=== PATIENT | female | born 1990 | race Caucasian/White ===

== ENCOUNTER 2017-07-28 16:50 | Inpatient (IN) ==
[2017-07-28] MEDS ORDERED: Famotidine 20 MG/2 ML VIAL IVP PRN (17:13)
[2017-07-28] MEDS ORDERED: Naloxone 0.4 MG/ML INJ IVP PRN (17:13)
[2017-07-28] MEDS ORDERED: Metoclopramide 10 MG/2 ML VIAL IVP PRN (17:13)
[2017-07-28] MEDS ORDERED: Ondansetron 4 MG/2 ML VIAL IVP PRN (17:13)
[2017-07-28] MEDS ORDERED: *HR* Nalbuphine 20 MG/ML AMPUL IVP PRN (17:13)
[2017-07-28 17:40] LABS: Basophils # 0.1 K/mcL (0.0-0.2); Basophils % 0.5 %; Eosinophils # 0.6 K/mcL (0.0-0.6); Hematocrit 38.8 % (35.3-44.9); Hemoglobin 13.1 g/dL (11.5-15.4); Immature Granulocytes % 0.4 % (0-4); Lymphocytes # 1.8 K/mcL (0.6-4.6); Lymphocytes % 11.6 %; Mean Corpuscular HGB Conc 33.8 g/dL (31.6-35.5); Mean Corpuscular Hemoglobin 29.9 pg (28.0-33.3); Mean Corpuscular Volume 88.6 fL (83.0-100.0); Mean Platelet Volume 12.2 fL (9.4-12.4); Monocytes # 1.5 K/mcL (0.0-1.3); Monocytes % 9.2 %; Neutrophils # 11.8 K/mcL (1.6-8.9); Platelet Count 193 K/mcL (140-400); Red Blood Count 4.38 M/mcL (3.82-4.97); Red Cell Distribution Width 12.8 % (11.5-14.5); Segmented Neutrophils % 74.3 %
[2017-07-28] MEDS: miSOPROStol 25 MCG TABLET VG PRN ×2 (17:46→23:41)
--- NOTE | 2017-07-28 17:57 | OB Labor Progress Note ---
Date of Encounter: 07/28/17 Time of Encounter: 17:55 Labor Progress Note - Subjective Subjective: Pt resting comfortably in bed. Denies feeling pain with contractions. - Cervix Cervix: 1/thick/-3 - Heart Tones Heart Tones: 150 bpm, moderate variability, +15x15 accels, no decels, Category I tracing. - Interventions Interventions: Arellano balloon placed and filled with 30 mL sterile water. Patient tolerated procedure well. 25 mcg Cytotec placed in posterior fornix after arellano placed. - Plan Plan: Continue labor management, AROM when appropriate. Repeat Cytotec 25 mcg in 4 hours if needed.
--- NOTE | 2017-07-28 18:11 | OB/GYN History & Physical ---
Date of Encounter: 07/28/17 Time of Encounter: 18:04 Assessment and Plan (1) 39 weeks gestation of Current visit: Yes Status: Acute Admit for IOL at 39w0d. BHARAT 7cm 07/25/17 from 18 cm on 07/18/17. Short balloon placed. Cytotec 25mcg placed vaginally. Epidural when requested. Anticipate . History of Present Illness Chief complaint: 39 week induction of labor HPI: Ms. Flower is a 27 year old female at 39w0d admitted for IOL. She is currently not feeling the contractions showing on monitor. Reports + movement, denies leakage of fluid and bleeding. BHARAT on 06/29/17 was 24.7 cm. Last BHARAT on 07/25/17 was 7 cm. Blood type A+ GBS negative Rubella Immune Varicella Immune HbSAG negative T. Pallidum negative HIV negative GC/Chlam negative Past Med Surg Social Fam HX - Past Medical History Source: patient Medical history: no medical history Psychiatric history: no psych history - Past Surgical History Surgical History: cholecystectomy - Social History Smoking Status: Never smoker Smokeless Tobacco Status: No Alcohol use: none Drug use: none Current living situation: Home - Independent Activity Level: Independent ambulation Recent Out of Country Travel Within the Last 8 Weeks: No Exposure or Possible Exposure to Illness During Travel: No - Family History Father Adopted: No Living Status: Still Living Hx Family Cardiac Disorders: No Hx Family Respiratory Disorders: No Hx Family Cancer: No Hx Family GI Disorders: No Hx Family Genitourinary Disorders: No Hx Family Endocrine Disorder: No Hx Family Musculoskeletal Disorders: No Hx Family Neuromuscular Disorders: No Hx Family Neurologic Disorders: No Hx Family HEENT Disorders: No Hx Family Autoimmune Disorders: No Hx Family Reproductive Disorders: No Hx Family Psychosocial Disorders: No Hx Family Medical Disorders: No Obstetrical History - Pregnancies : 1 Para: 0 Term: 0 : 0 Ab's: 0 Livin Medications and Allergies Claritin 07/28/17 [History] Formula Tablet 07/28/17 [History] Zantac 07/28/17 [History] 3 Allergy/AdvReac Type Severity Reaction Status Date / Time No Known Allergies Allergy Verified 07/28/17 17:21 Review of System OB All systems PM: reviewed and no additional remarkable complaints except as stated Exam - Constitutional Constitutional: well developed, well nourished, no acute distress, average body habitus - Neck Neck exam: full ROM, normal inspection - Lungs Respiratory exam: CTAB - Cardiovascular Cardiovascular exam: RRR, +S1, +S2 - Breasts Breast: bilateral: normal - Abdomen Abdomen: Present: bowel sounds normal, gravid, non tender - Extremities Extremities exam: full ROM, normal capillary refill, normal inspection - Cervix Dilation: 1 Effacement: 0 (Thick) Station: -3 - Uterus Uterus exam: Present: normal size, normal contour - Anus/Rectum Anus/Rectum: Present: normal perianal skin - Comments Comments: FHR 140 bpm, moderate variability, +15x15 accels, no decels. Category I tracing. Irregular contractions. Results Result Diagrams: 07/28/17 17:30 Abnormal lab results WBC 15.8 K/mcL (4.3-11.1) H 07/28/17 17:30 Neutrophils # 11.8 K/mcL (1.6-8.9) H 07/28/17 17:30 Monocytes # 1.5 K/mcL (0.0-1.3) H 07/28/17 17:30 All other labs normal. - VTE Reasons for not Prescribing Prophylaxis: Treatment not Indicated - Low risk for VTE
--- NOTE | 2017-07-28 22:35 | OB Labor Progress Note ---
Date of Encounter: 07/28/17 Time of Encounter: 22:32 Labor Progress Note - Subjective Subjective: Pt resting between contractions. Feels contractions approximately every 4 minutes, rating them a 6 out of 10. Plans an epidural for pain management when appropriate. - Cervix Cervix: 3/50/-3 - Heart Tones Heart Tones: FHR 145 bpm, moderate variability, + 15x15 accels, no decels. Category I tracing. - [place]: 1-4 minutes - Interventions Interventions: SVE - Plan Plan: Will consider second dose of Cytotec after better evaluation of contraction pattern is available. Continue labor management.
[2017-07-29] MEDS: Ringers Solution, Lactated 1,000 ML IVC SCH ×2 (00:27→04:16)
[2017-07-29] MEDS ORDERED: 0.9 % Sodium Chloride 500 ML ONE (03:06)
[2017-07-29] MEDS ORDERED: Epidural Premix (fent/bupiv) 110 ML EP ONE (03:09)
--- NOTE | 2017-07-29 04:09 | Anesthesia Evaluation PreOp ---
Date of Encounter: 07/29/17 Time of Encounter: 03:30 - Past History Planned Operation: DAVINA Cardiac History: Denies any Significant Hx Pulmonary History: Denies Any Significant HX FINISHING ROOM OPERATOR History: Denies Any Significant HX Other Medical History: Denies Any Significant HX Anesthesia History: No Prior Anesthetic Complications : Yes Test: Positive Alcohol Use: none Drug use: none Medications and Allergies Claritin 07/28/17 [History] Formula Tablet 07/28/17 [History] Zantac 07/28/17 [History] 3 Allergy/AdvReac Type Severity Reaction Status Date / Time No Known Allergies Allergy Verified 07/28/17 17:21 - Meds/Allergy Pre-op Review Medications Reviewed: Yes Allergies Reviewed: Yes Beta Blockers on Current Med List: No Anesthesia Results - Labs 07/28/17 17:30 Anesthesia Exam - HEENT Pupil (Motor): Pupils equal Mallampati: II Teeth: Normal Oral Opening: Greater than 3 - FINISHING ROOM OPERATOR LOC: Oriented FINISHING ROOM OPERATOR Motor: Normal RUE, Normal LUE, Normal RLE, Normal LLE, Normal Face FINISHING ROOM OPERATOR Sensory: Normal: RUE, LUE, RLE, LLE, Face - Cardiac Rhythm: Regular Murmur: None JVD: No Carotid Bruit: No - Pulmonary Breath Sounds: bilateral Clear Respiratory Effort: Symmetrical Anesthesia Assess/Plan ASA Score: 1, 2 Modified [place] Scale for Level of Consciousness: Cooperative, oriented, and tranquil Anesthetic Plan: Regional Autologous Blood: No Monitoring Plan: Standard Monitors
[2017-07-29] MEDS ORDERED: Terbutaline 1 MG/ML VIAL SQ ONE ×2 (04:11)
--- NOTE | 2017-07-29 04:11 | Anesthesia Procedures ---
Date of Encounter: 07/29/17 Time of Encounter: 03:30 Procedures: Anesthesia - Epidural/Spinal Patient ID/Chart reviewed: Yes Patient examined: Yes OB Eval: Gestational age: 39 OB Eval: : 1 OB Eval: Hx Para: 0 OB Eval: Contractions: Non-stressed pattern Consent Obtained: Yes Supplemental Oxygen: None/Room Air Site Prep: Aseptic Technique, Sterile prep and drape, Povidone-Iodine 1% Patient position: upright Local Anesthetic: Lidocaine 1% Amount of Local Anesthetic used: 3 Touhy Needle Gauge: 18 Touhy Needle Depth (cm): 4 Catheter Depth at Skin (cm): 7 Test Dose (1.5% Lido + Epi): Volume given (mls): 3 Test Dose Result: Negative Loading Dose Administered: Thru Catheter Infusion Rate (mls/hr): [address]: Tegaderm, Tape Interspace Used: L4-L5 Loss of Resistance (MADELINE): Yes Blood: No CSF: No Paresthesia: No Vitals + FHT's: stable see nursing notes
[2017-07-29] MEDS ORDERED: Epidural Premix (fent/bupiv) 110 ML EP SCH (04:15)
[2017-07-29] MEDS ORDERED: Ondansetron 4 MG/2 ML VIAL ONE (06:43)
[2017-07-29] MEDS ORDERED: Dexamethasone 4 MG/ML VIAL ONE (06:43)
[2017-07-29] MEDS ORDERED: Ringers Solution, Lactated 1,000 ML ONE (06:43)
[2017-07-29] MEDS ORDERED: Lidocaine/EPI 1:200k 2% PF 20 ML VIAL ONE (06:43)
[2017-07-29] MEDS ORDERED: *HR* Oxytocin 10 UNIT/ML VIAL IM ONE (06:43)
[2017-07-29] MEDS ORDERED: *HR* Morphine Sulfate/PF 5 MG/10 ML AMPUL ONE ×2 (06:45→06:49)
[2017-07-29] MEDS ORDERED: Dexamethasone 4 MG/ML VIAL IVP ONE (06:55)
[2017-07-29] MEDS ORDERED: *HR* Promethazine 25 MG/ML VIAL IVP PRN (06:55)
[2017-07-29] MEDS ORDERED: *HR* OxyCODONE/APAP 5/325 TABLET PO PRN (06:55)
[2017-07-29] MEDS ORDERED: Ondansetron 4 MG/2 ML VIAL IVP PRN ×2 (06:55→10:09)
[2017-07-29] MEDS ORDERED: *HR* Meperidine 25 MG/ML SYRINGE IVP PRN (06:55)
[2017-07-29] MEDS ORDERED: Ondansetron 4 MG/2 ML VIAL IVP ONE (06:55)
[2017-07-29] MEDS ORDERED: Ibuprofen 400 MG TABLET PO PRN (06:55)
--- NOTE | 2017-07-29 07:16 | OB/GYN Procedure Note ---
Section - Date of procedure: 07/29/17 Preop diagnosis: category 3 FHT tracing Post-op diagnosis: other (Nuchal cord x 1) Surgeon: Brad Arriola Estimated blood loss (cc): 600 Anesthesia Type: Epidural section complications: none Disposition: L&D Recovery Room Specimens: Placenta - Infant (s) Infant A Delivery Date: 07/29/17 Infant Delivery Time: 06:37 Presentation: vertex Position: OA Route of delivery: other (Primary ) Gender: Male Viability: Viable Pounds: 7 Ounces: 8 at 1 minute: 9 at 5 minutes: 9 Shoulder Dystocia: not encountered Placenta: complete extraction Cord: nuchal cord, 3 umbilical vessels - Narrative Narrative: 27-year-old 1 para 0 female who presented for induction reach 4 cm dilation when begin having recurrent late decelerations. She had been 4-5 cm dilated for approximately 3 hours. Prior to that she had multiple deep variable decelerations occurring amnioinfusion. After discussed with patient options decision was made to proceed with primary section. She was informed of operative risks and signed appropriate consent. Description procedure: Patient was taken operating room with epidural in place. Epidural was dosed prior to transfer. Short catheter was already in place. She is prepped draped in usual sterile fashion. Scalpel was used to make Pfannenstiel skin incision was sharply taken down the rectus fascia. Fascia was incised midline fascial incision was extended bilaterally. Rectus muscles were divided and peritoneum was entered bluntly. Peritoneal incision was extended bluntly. Bladder blade was placed and bladder flap was developed and lower uterine segment. Scalpel was used to make a low transverse uterine incision. was delivered from vertex presentation did require vacuum assistance for 5 seconds at a pressure of 550 mmHg. Cord was clamped and cut. Was found to be 7 lbs. 8 oz. Apgars of 9 at 1 minute and 9 at 5 minutes. Placenta was delivered manually without difficulty and uterine cavity was massaged free of all residual tissue. Ring clamps were placed around the edges of the uterus and uterine incision was closed 0 Vicryl running lock stitch. Second imbricating layer was placed over the first obtain hemostasis. A small amount of oozing in the midline and this was stopped with a single figure-of- eight suture with 0 Vicryl suture. Irrigation was performed hemostasis was ensured. Fascia was closed 0 Vicryl in a running manner and the skin is then reapproximated with 4-0 Vicryl. All sponge and instruments counts are correct patient was taken recovery in good condition.
[2017-07-29] MEDS ORDERED: Oxytocin 20 units/ LR 1000 mL 20 UNIT/1,000 ML BAG IVC ONE (07:30)
[2017-07-29] MEDS ORDERED: *HR* HYDROmorphone (PF) 1 MG/ML SYRINGE ONE (09:30)
[2017-07-29] MEDS ORDERED: Sennosides 8.6 MG TABLET PO PRN (10:09)
[2017-07-29] MEDS ORDERED: Naloxone 0.4 MG/ML INJ IVP PRN (10:09)
[2017-07-29] MEDS ORDERED: Metoclopramide 10 MG/2 ML VIAL IVP PRN (10:09)
[2017-07-29] MEDS ORDERED: Rho Immune Globulin 1,500 UNIT SYRINGE IM ONE (10:09)
[2017-07-29] MEDS ORDERED: *HR* HYDROmorphone (PF) 1 MG/ML SYRINGE IVP PRN ×2 (10:09→10:17)
[2017-07-29] MEDS ORDERED: Oxytocin 20 units/ LR 1000 mL 20 UNIT/1,000 ML BAG IVC SCH (10:09)
[2017-07-29] MEDS ORDERED: *HR* Morphine 2 MG/ML SYRINGE IVP PRN (10:09)
[2017-07-29] MEDS: Prenatal Vit/FA 1 EACH TABLET PO SCH (10:18)
[2017-07-29] MEDS: *HR* OxyCODONE/APAP 5/325 TABLET PO PRN ×2 (17:37→22:57)
[2017-07-29] MEDS: Ibuprofen 600 MG TABLET PO PRN (21:32)
[2017-07-30] MEDS: Ibuprofen 600 MG TABLET PO PRN ×3 (05:36→18:06)
[2017-07-30 06:16] LABS: Hematocrit 24.8 % (35.3-44.9); Red Cell Distribution Width 13.2 % (11.5-14.5)
[2017-07-30 06:18] LABS: Basophils # 0.1 K/mcL (0.0-0.2); Basophils % 0.3 %; Eosinophils % 1.3 %; Hemoglobin 8.4 g/dL (11.5-15.4); Immature Granulocytes % 0.8 % (0-4); Lymphocytes # 2.4 K/mcL (0.6-4.6); Mean Corpuscular HGB Conc 33.9 g/dL (31.6-35.5); Mean Corpuscular Hemoglobin 30.7 pg (28.0-33.3); Mean Corpuscular Volume 90.5 fL (83.0-100.0); Mean Platelet Volume 12.4 fL (9.4-12.4); Monocytes # 2.3 K/mcL (0.0-1.3); Monocytes % 8.5 %; Neutrophils # 21.4 K/mcL (1.6-8.9); Platelet Count 144 K/mcL (140-400); Red Blood Count 2.74 M/mcL (3.82-4.97); Segmented Neutrophils % 80.1 %
[2017-07-30 06:43] LABS: Eosinophils # 0.4 K/mcL (0.0-0.6)
[2017-07-30] MEDS: Prenatal Vit/FA 1 EACH TABLET PO SCH (08:03)
[2017-07-30] MEDS: *HR* OxyCODONE/APAP 5/325 TABLET PO PRN ×3 (08:03→19:35)
[2017-07-30 09:04] LABS: Platelet Estimate Normal (Normal)
[2017-07-30] MEDS: Simethicone 80 MG TAB.CHEW PO PRN ×2 (10:15→19:35)
--- NOTE | 2017-07-30 11:34 | OB/GYN Progress Note ---
Date of Encounter: 07/30/17 Time of Encounter: 11:32 - Assessment and Plan (1) S/P section Current Visit: Yes Status: Acute Doing well, will continue post op/post care. Subjective - Subjective Principal diagnosis: s/p c-sec Interval history: Doing well. Regular diet without n/v. Good pain control. Objective - Vital Signs Latest vital signs: Vital Signs Temp Pulse Resp BP Pulse Ox 07/30/17 08:36 98.1 F 83 18 122/77 97 07/30/17 05:30 97.8 F 81 16 114/68 97 07/29/17 23:55 98.4 F 78 16 131/69 95 07/29/17 20:03 98.5 F 72 16 113/67 96 07/29/17 16:27 98.8 F 95 20 121/73 95 07/29/17 13:25 97.9 F 73 20 132/75 96 07/29/17 12:31 98.0 F 66 16 126/78 97 07/29/17 11:33 97.9 F 64 18 124/69 97 Intake and Output 07/29/17 07/30/17 07/30/17 23:59 07:59 15:59 Intake Total 840 / 840 Output Total 1200 / 1200 400 / 400 Balance -360 / -360 -400 / -400 Intake: Oral 840 / 840 Output: Urine 250 / 250 400 / 400 Catheter 950 / 950 Other: Meal Dinner Percent of Meal Consumed 100% Weight 70.2 kg Patient Weight 07/30/17 23:59 Weight 70.2 kg - I&O's I&O's: Intake & Output 07/27/17 07/28/17 07/29/17 07/30/17 23:59 23:59 23:59 23:59 Intake Total 1840 / 1840 Output Total 2650 / 2650 400 / 400 Balance -810 / -810 -400 / -400 Weight 73.6 kg 70.398 kg 70.2 kg - Exam Lungs: bilateral: normal Chest: Normal S1, Normal S2 Extremities: Present: normal Abdomen: Present: soft Incision OB: Present: normal, intact - Labs Labs: Abnormal lab results WBC 26.7 K/mcL (4.3-11.1) H D 07/30/17 05:46 RBC 2.74 M/mcL (3.82-4.97) L 07/30/17 05:46 Hgb 8.4 g/dL (11.5-15.4) L D 07/30/17 05:46 Hct 24.8 % (35.3-44.9) L 07/30/17 05:46 Neutrophils # 21.4 K/mcL (1.6-8.9) H 07/30/17 05:46 Monocytes # 2.3 K/mcL (0.0-1.3) H 07/30/17 05:46 Consult Discharge Plan - Plan Referrals: Fahad Vogt MD [Primary Care Provider] -
[2017-07-31] MEDS: *HR* OxyCODONE/APAP 5/325 TABLET PO PRN ×3 (00:15→08:47)
[2017-07-31] MEDS: Ibuprofen 600 MG TABLET PO PRN (02:14)
[2017-07-31 08:02] VITALS: BP 109/68
--- NOTE | 2017-07-31 08:28 | Discharge Summary ---
Date of Encounter: 07/31/17 Time of Encounter: 08:25 - Discharge Diagnosis (1) anemia Priority: Secondary Status: Acute Comments: continue ferrous sulfate daily (2) S/P section Priority: Primary Status: Acute Comments: Continue routine postop/ care discharge home today - Discharge Medications Prescriptions: OxyCODONE/APAP 5/325 [Percocet 5/325 MG] 1 each PO Q4HR PRN #30 tablet PRN Reason: Moderate pain 4-6 Ibuprofen [Motrin] 600 mg PO Q6HR PRN #60 tablet PRN Reason: Cramping Ferrous Sulfate 325 mg PO DAILY #30 tablet Home Medications: Claritin 07/28/17 [History] Formula Tablet 07/28/17 [History] Docusate [Colace] 100 mg PO BID capsule 07/31/17 [Rx] Ferrous Sulfate 325 mg PO DAILY #30 tablet 07/31/17 [Rx] Ibuprofen [Motrin] 600 mg PO Q6HR PRN #60 tablet 07/31/17 [Rx] OxyCODONE/APAP 5/325 [Percocet 5/325 MG] 1 each PO Q4HR PRN #30 tablet 07/31/17 [Rx] Simethicone [Gas-X] 80 mg PO TID PRN tab.chew 07/31/17 [Rx] Allergies/Adverse Reactions: 3 Allergy/AdvReac Type Severity Reaction Status Date / Time No Known Allergies Allergy Verified 07/28/17 17:21 Data Procedures and tests throughout hospitalization: Laboratory Tests 07/28/17 07/30/17 17:30 05:46 WBC 15.8 H 26.7 H D RBC 4.38 2.74 L Hgb 13.1 8.4 L D Hct 38.8 24.8 L MCV 88.6 90.5 MCH 29.9 30.7 MCHC 33.8 33.9 RDW 12.8 13.2 Plt Count 193 144 MPV 12.2 12.4 Immature Gran % 0.4 0.8 Seg Neutrophils % 74.3 80.1 Lymphocytes % 11.6 9.0 Monocytes % 9.2 8.5 Eosinophils % 4.0 1.3 Basophils % 0.5 0.3 Neutrophils # 11.8 H 21.4 H Lymphocytes # 1.8 2.4 Monocytes # 1.5 H 2.3 H Eosinophils # 0.6 0.4 Basophils # 0.1 0.1 Platelet Estimate Normal Labs on day of discharge: Labs from last 24 hours 07/30/17 05:46 Immature Gran % 0.8 Seg Neutrophils % 80.1 Lymphocytes % 9.0 Monocytes % 8.5 Eosinophils % 1.3 Basophils % 0.3 Neutrophils # 21.4 H Lymphocytes # 2.4 Monocytes # 2.3 H Eosinophils # 0.4 Basophils # 0.1 Platelet Estimate Normal Date of admission: 07/28/17 16:50 Primary care physician: Fahad Vogt MD Discharging clinician: Lashell Albright Anticipated date of discharge: 07/31/17 - Patient Status Disposition: Home, Self-Care Condition: Good Functional capacity at discharge: independent ambulation - Discharge Instructions Follow Up With: Fahad Vogt MD [Primary Care Provider] - Brad Arriola MD [Partnered Physician] - - Diet and Activity Activity: increase activity as tolerated Diet: regular diet Hospital Course Procedures: [facility] report reviewed by Lashell Albright CNM Reason for admission: active labor Delivery: section (for intolerance of labor) Episiotomy: none Laceration: none Other procedures: none complications: none Discharge diagnosis: IUP at term delivered [place] baby: male (bottle feeding) Time Attestation: Total time spent providing and/or coordinating discharge services: Time Spent: Less than 30 minutes - VTE Reasons for not Prescribing Prophylaxis: Treatment not Indicated - Low risk for VTE Documentation of Mechanical Device: Intermittent pneumatic compression device Exam - Constitutional Vitals: Temp Pulse Resp BP Pulse Ox 97.3 F L 81 16 109/68 98 07/31/17 08:01 07/31/17 08:01 07/31/17 08:01 07/31/17 08:01 07/30/17 19:40 General appearance IM: A&O X 3, pleasant, answers questions appropriately - Respiratory Respiratory exam: Present: CTAB - Cardiovascular Cardiovascular exam IM: Present: RRR, +S1, +S2 - GI/Abdominal GI/Abdominal exam IM: normal bowel sounds - Uterine Tone: Firm Uterus Position: 2 Fingers Below Umbilicus, Midline - Extremities Exam Extremities exam IM: Present: full ROM, normal capillary refill, normal inspection - Neurological Exam Neurological exam: alert, oriented X3, reflexes normal
[2017-07-31] MEDS: Prenatal Vit/FA 1 EACH TABLET PO SCH (08:47)
== END 2017-07-31 13:10 | disposition home or self-care (01) | DRG 766 ==
LOC: 1NENULAB 16:50 → 1NENUOBS 07-29 09:51
PROVIDERS: ADMIT Obstetrics & Gynecology; ATTEND Obstetrics & Gynecology

== ENCOUNTER 2019-07-19 08:09 | Inpatient (IN) ==
[2019-07-19] MEDS ORDERED: Metoclopramide 10 MG/2 ML VIAL IVP ONE (08:24)
[2019-07-19] MEDS ORDERED: Ringers Solution, Lactated 1,000 ML IVC ONE (08:24)
[2019-07-19] MEDS ORDERED: Oxytocin 20 units/ LR 1000 mL 20 UNIT/1,000 ML BAG IVC ONE (08:24)
[2019-07-19] MEDS ORDERED: CeFAZolin Premix DUPLEX 2,000 MG/50 ML BAG IVPB ONE (08:24)
[2019-07-19] MEDS ORDERED: Famotidine 20 MG/2 ML VIAL IVP ONE (08:24)
[2019-07-19] MEDS ORDERED: Ringers Solution, Lactated 1,000 ML IVC SCH (08:30)
[2019-07-19] MEDS ORDERED: FLU Vac QV 19-20 (6Month+)/PF 0.5 ML SYRINGE IM ONE (09:09)
[2019-07-19] MEDS ORDERED: *HR* Promethazine 25 MG/ML VIAL IVP PRN (09:12)
[2019-07-19] MEDS ORDERED: Acetaminophen IV 1,000 MG/100 ML INFUS..BTL IVPB ONE (09:12)
[2019-07-19 09:17] LABS: Basophils # 0.1 K/mcL (0.0-0.2); Basophils % 0.6 %; Eosinophils # 0.2 K/mcL (0.0-0.6); Eosinophils % 1.7 %; Hematocrit 38.6 % (35.3-44.9); Hemoglobin 13.5 g/dL (11.5-15.4); Immature Granulocytes % 0.6 % (0-4); Lymphocytes # 2.1 K/mcL (0.6-4.6); Lymphocytes % 16.9 %; Mean Corpuscular Hemoglobin 30.8 pg (28.0-33.3); Mean Corpuscular Volume 87.9 fL (83.0-100.0); Mean Platelet Volume 11.8 fL (9.4-12.4); Monocytes % 8.3 %; Neutrophils # 8.7 K/mcL (1.6-8.9); Platelet Count 190 K/mcL (140-400); Red Blood Count 4.39 M/mcL (3.82-4.97); Red Cell Distribution Width 13.1 % (11.5-14.5); Segmented Neutrophils % 71.9 %; White Blood Count 12.1 K/mcL (4.3-11.1)
[2019-07-19] MEDS ORDERED: *HR* HYDROMORPHONE 2 MG/ML VIAL ONE (09:26)
[2019-07-19] MEDS ORDERED: *HR* Midazolam HCl 2 MG/2 ML VIAL ONE (09:27)
[2019-07-19] MEDS ORDERED: *HR* FentaNYL (PF) 100 MCG/2 ML VIAL ONE (09:27)
[2019-07-19] MEDS ORDERED: Ringers Solution, Lactated 1,000 ML ONE (09:27)
[2019-07-19] MEDS ORDERED: EPHEDrine 50 MG/ML VIAL ONE (09:27)
[2019-07-19] MEDS ORDERED: *HR* Phenylephrine 10 MG/ML VIAL ONE (09:28)
[2019-07-19] MEDS ORDERED: Ondansetron 4 MG/2 ML VIAL ONE (09:31)
[2019-07-19] MEDS ORDERED: *HR* Oxytocin 10 UNIT/ML VIAL IM ONE (09:37)
[2019-07-19 09:56] LABS: Amphetamine Screen,Urine Negative ng/mL (Cutoff=1000); Barbiturate Screen,Urine Negative ng/mL (Cutoff=200); Benzodiazepines Screen,Urine Negative ng/mL (Cutoff=200); Cannabinoid Screen,Urine Negative ng/mL (Cutoff = 50); Cocaine Screen,Urine Negative ng/mL (Cutoff= 300); Opiate Screen,Urine Negative ng/mL (Cutoff=300); Phencyclidine Screen,Urine Negative ng/mL (Cutoff=25)
[2019-07-19] MEDS ORDERED: Ketorolac 30 MG/ML VIAL ONE (10:54)
[2019-07-19] MEDS ORDERED: Ondansetron 4 MG/2 ML VIAL IVP PRN ×2 (11:01→14:08)
[2019-07-19] MEDS ORDERED: *HR* OxyCODONE/APAP 5/325 TABLET PO PRN (11:01)
[2019-07-19] MEDS ORDERED: Ibuprofen 400 MG TABLET PO PRN (11:01)
[2019-07-19] MEDS ORDERED: Metoclopramide 10 MG/2 ML VIAL IVP PRN (14:08)
[2019-07-19] MEDS ORDERED: Oxytocin 20 units/ LR 1000 mL 20 UNIT/1,000 ML BAG IVC SCH ×2 (14:08)
[2019-07-19] MEDS ORDERED: Sennosides 8.6 MG TABLET PO PRN (14:08)
[2019-07-19] MEDS ORDERED: Acetaminophen 325 MG TABLET PO PRN (14:08)
[2019-07-19] MEDS ORDERED: Simethicone 80 MG TAB.CHEW PO PRN (14:08)
[2019-07-19] MEDS: Ibuprofen 600 MG TABLET PO PRN (16:55)
[2019-07-19] MEDS: *HR* OxyCODONE/APAP 5/325 TABLET PO PRN (20:02)
[2019-07-20] MEDS: *HR* OxyCODONE/APAP 5/325 TABLET PO PRN ×5 (00:12→21:56)
[2019-07-20] MEDS: Ibuprofen 600 MG TABLET PO PRN ×3 (00:12→17:26)
[2019-07-20] MEDS: Prenatal Vit/FA 1 EACH TABLET PO SCH (08:41)
[2019-07-20 09:16] LABS: Basophils # 0.1 K/mcL (0.0-0.2); Basophils % 0.4 %; Eosinophils # 0.3 K/mcL (0.0-0.6); Hematocrit 34.3 % (35.3-44.9); Immature Granulocytes % 0.7 % (0-4); Lymphocytes # 1.7 K/mcL (0.6-4.6); Lymphocytes % 12.3 %; Mean Corpuscular HGB Conc 33.5 g/dL (31.6-35.5); Mean Corpuscular Hemoglobin 30.9 pg (28.0-33.3); Mean Corpuscular Volume 92.2 fL (83.0-100.0); Mean Platelet Volume 11.7 fL (9.4-12.4); Monocytes # 1.1 K/mcL (0.0-1.3); Monocytes % 8.1 %; Neutrophils # 10.9 K/mcL (1.6-8.9); Platelet Count 170 K/mcL (140-400); Red Blood Count 3.72 M/mcL (3.82-4.97); Red Cell Distribution Width 13.2 % (11.5-14.5); Segmented Neutrophils % 76.5 %; White Blood Count 14.2 K/mcL (4.3-11.1)
[2019-07-20 09:22] LABS: Hemoglobin 11.5 g/dL (11.5-15.4)
[2019-07-21] MEDS: Ibuprofen 600 MG TABLET PO PRN (06:47)
[2019-07-21 09:23] VITALS: BP 116/65
[2019-07-21] MEDS: Prenatal Vit/FA 1 EACH TABLET PO SCH (10:15)
[2019-07-21] MEDS: *HR* OxyCODONE/APAP 5/325 TABLET PO PRN (10:16)
== END 2019-07-21 13:10 | disposition home or self-care (01) | DRG 788 ==
LOC: 1NENULAB 08:09 → 1NENUOBS 13:41
PROVIDERS: ADMIT Obstetrics & Gynecology; ATTEND Obstetrics & Gynecology